=== PATIENT | female | born 2000 | race Caucasian/White ===

== ENCOUNTER 2024-10-18 21:49 | Emergency (ER) | payer OTHER, SELFPAY ==
[2024-10-18 21:52] VITALS: BP 122/74
--- NOTE | 2024-10-18 22:03 | ED.GENMED ---
History of Present Illness
General
Chief Complaint: Allergic Reaction
Source: patient
Exam Limitations: none
Time Seen by Provider: 10/18/24 21:56
History of Present Illness
History of Present Illness:
24yoF with no significant past medical history presenting with her significant other for an allergic reaction. Patient was at a wedding this evening. She had sea perdomo and steak for dinner. About 15 minutes after eating dinner, she started to
notice sneezing and nasal congestion. Her fiance went to the store to purchase Benadryl but was called shortly after leaving to take her to the hospital. She was having some difficulty breathing earlier but this has resolved and she believes this
was from anxiety. She denies any dysphagia, vomiting, diarrhea. No prior history of similar allergic reactions in the past.
Phy Exam
General Physical Exam
General Presentation: well appearing
General Skin: warm and dry
General Habitus: normal
General Mental: alert
ENT Exam
ENT Exam: other (Mild-moderate periorbital and facial swelling. No angioedema. Normal phonation. Tolerating oral secretions without difficulty.)
Cardiovascular Exam
Cardiovascular Exam: regular rate/rhythm
Pulmonary Exam
Pulmonary Exam: lungs clear, no respiratory distress, no rales, no crackles, no rhonchi and no wheezing
Neurological Exam
Neurological Exam: alert
Juan [place] Coma Scale
Eye Opening: Spontaneous
Verbal Response: Oriented
Motor Response: Obeys Commands
GCS Total Score: 15
Skin Exam
Skin Exam: warm/dry and other (Diffuse skin flushing)
Psychiatric Exam
Psychiatric Exam: normal mood/affect
Course
Orders/Labs/Results
Orders:
Orders
10/18/24 22:00
Cardiac Monitoring- Treatment ONCE
0.9% Sodium Chloride 1000 ml [Nss] 1,000 ml IV BOLUS
Dexamethasone Sod Phosphate [Decadron] 10 mg IV NOW STA
Diphenhydramine [Benadryl] 50 mg IV NOW STA
Famotidine [Pepcid] 20 mg IV NOW STA
Vital Signs
Initial and Last Documented VS:
Initial Vital Signs
Temp Pulse Resp BP Pulse Ox
97.8 F 88 20 122/74 98
10/18/24 21:52 10/18/24 21:52 10/18/24 21:52 10/18/24 21:52 10/18/24 21:52
Last Documented Vital Signs
Temp Pulse Resp BP Pulse Ox
97.8 F 87 18 135/114 100
10/18/24 21:52 10/18/24 22:37 10/18/24 22:37 10/18/24 22:37 10/18/24 22:37
MDM/Problems Addressed
Differential Diagnosis Includes:
24yoF here with an allergic reaction after eating sea perdomo/steak at a wedding this evening. She is presenting with diffuse skin flushing and facial swelling. Denies SOB or dysphagia. No v/d. VSS. Airway patent on exam and there is no evidence of
angioedema. Lungs CTA without wheezing/stridor. Differential diagnosis includes: allergic reaction, anaphylaxis, scombroid reaction
Initial ED plan: IV Benadryl, Pepcid, Decadron and fluid bolus.
*Pulse Oximetry
SaO2: 98
Oxygen Mode of Delivery: Room air
Patient hypoxic: no (98%)
*Critical Care Note
Total Time (30-74mins, 75-104mins- exclusive of procedures): Not Applicable
Update Note
Update Note:
Patient feeling significantly improved on reassessment. Skin flushing has resolved. She continues to have mild periorbital edema but this also seems improved. Patient is stable for discharge. Supportive cared discussed. Advised close f/u with
PCP and ED return precautions reviewed.
ED Attending Note
-
Portions of this chart may have been created with voice recognition software.� Occasional wrong word or��sound alike� substitutions may have occurred due to the inherent limitations of voice recognition software.
Discharge Plan
Departure
Patient Disposition: Home (Routine Discharge)
Date of Disposition: 10/18/24
Time of Disposition: 23:35
Patient with high blood pressure during this ER visit?: No
Discharge Problem:
Allergic reaction
Instructions: Allergic reaction - ED discharge instructions
Referrals:
Marjorie Fulton DO [Family Provider, Family Practice]
Activity Restrictions/Additional Instructions:
Take Benadryl 25 mg every 6 hours as needed.
Please follow-up with your family doctor on Sunday. Return to the ER with any worsening symptoms including trouble breathing or swallowing.
Interventions
Interventions:
*Risk Screen - Suicide Last Done: 10/18/24 21:52
*Neglect/Abuse Screening Last Done: 10/18/24 21:52
ED- Cardiac Assessment Last Done: 10/18/24 22:38
ED- Pulmonary Assessment Last Done: 10/18/24 22:38
ED-Skin Assessment Last Done: 10/18/24 22:39
Discharge Date and Time
Print Language: GRENADIAN
[2024-10-18 22:04] VITALS: BP 135/114
[2024-10-18] MEDS: NSS 1000 IV (22:16)
[2024-10-18] MEDS: DECADRON 10 MG IV (22:17)
[2024-10-18] MEDS: PEPCID 20 MG IV (22:17)
[2024-10-18] MEDS: BENADRYL 50 MG IV (22:17)
[2024-10-18 22:37] VITALS: BP 135/114
[2024-10-19 00:03] VITALS: BP 97/55
== END 2024-10-19 00:24 | disposition home or self-care (01) ==
LOC: EMR 21:49
PROVIDERS: EMERGENCY PHYSICIAN Emergency Medicine; FAMILY PHYSICIAN Family Medicine
DX: T78.1XXA Other adverse food reactions, not elsewhere classified, initial encounter (principal); R22.0 Localized swelling, mass and lump, head; R23.2 Flushing; X58.XXXA Exposure to other specified factors, initial encounter
CPT/HCPCS: 96374; 96375; 96361; 99284